=== PATIENT | male | born 1985 | race Caucasian/White ===

== ENCOUNTER 2022-04-06 03:01 | Outpatient (CLI) | payer MEDICARE, MEDICAID | END 2022-04-06 03:02 | disposition critical access hospital (66) | LOC: EMS 03:01 | DX: R20.0 Anesthesia of skin (principal) | CPT/HCPCS: A0425; A0429 ==

== ENCOUNTER 2022-04-06 03:16 | Emergency (ER) | payer MEDICARE, MEDICAID ==
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
[2022-04-06 06:17] VITALS: BP 111/83
== END 2022-04-06 06:18 | disposition home or self-care (01) ==
LOC: EDUNIT# → ED 03:16
DX: Z03.89 Encounter for observation for other suspected diseases and conditions ruled out (principal)
CPT/HCPCS: 99282; 99284